=== PATIENT | male | born 1950 | race Two or more races ===

== ENCOUNTER 2023-04-10 19:09 | Emergency (ER) | payer MEDICARE, OTHER ==
[2023-04-10 20:14] LABS: BASOPHILS % (AUTO) 0.4 %; EOSINOPHILS # (AUTO) 0.2 10^3/uL (0.0-0.7); EOSINOPHILS % (AUTO) 2.2 %; HCT - HEMATOCRIT 43.9 % (42.0-52.0); HGB - HEMOGLOBIN 14.3 g/dL (14.0-18.0); LYMPHOCYTES # (AUTO) 1.3 10^3/uL (1.5-3.5); LYMPHOCYTES % (AUTO) 17.9 %; MEAN CORPUSCULAR HGB CONC 32.6 g/dL (32.0-36.0); MEAN PLATELET VOLUME 10.8 fL (7.4-11.4); MONOCYTES # (AUTO) 0.5 10^3/uL (0.0-1.0); MONOCYTES % (AUTO) 7.1 %; NEUTROPHILS # (AUTO) 5.4 10^3/uL (1.5-6.6); NEUTROPHILS % (AUTO) 72.3 %; PLT - PLATELET COUNT 365 10^3/uL (130-450); RED BLOOD COUNT 4.62 10^6/uL (4.70-6.10); RED CELL DISTRIBUTION WIDTH 13.1 % (12.0-15.0); WHITE BLOOD COUNT 7.4 x10^3/uL (4.8-10.8)
--- NOTE | 2023-04-10 20:24 | ED Physician Documentation ---
History of Present Illness - Stated complaint Stated Complaint: SOA - Chief complaint Chief Complaint: Resp - History obtained from History obtained from: Patient, Family - History of Present Illness Timing: Today Pain level max: 0 Pain level now: 0 - Additonal information Additional information: 72-year-old male presents to the emergency department stating that he was recently hospitalized at [facility] in [place] for pneumonia. He was found to have severe pulmonary hypertension at that time as well. He was treated with 10 days of antibiotics, states no fevers and the cough is decreased but he is still having trouble lying flat, feels like he cannot catch his breath when he lies flat. Also complains of swelling to the bilateral ankles. He states that his pulmonary artery pressures were above 90. He is not having any chest pain. He states that he feels anxious today. No abdominal pain. No nausea. No vomiting. He does not yet have a primary care provider. Review of Systems Constitutional: denies: Fever, Chills GI: denies: Vomiting, Diarrhea Skin: denies: Rash Musculoskeletal: denies: Neck pain, Back pain Neurologic: denies: Headache PD PAST MEDICAL HISTORY - Past Medical History Past Medical History: Yes Cardiovascular: Hypertension, Other (Pulmonary artery hypertension) - Present Medications Home Medications: Ambulatory Orders Medication Instructions Recorded Confirmed Aspirin [Iglesia] 325 mg PO DAILY 04/10/23 04/10/23 Furosemide [Lasix] 20 mg PO DAILY #7 tablet 04/10/23 - Allergies Allergies/Adverse Reactions: Allergies Allergy/AdvReac Type Severity Reaction Status Date / Time Sulfa (Sulfonamide Allergy Unknown Verified 04/10/23 19:33 Antibiotics) - Living Situation Living Arrangement: reports: At home - Social History Does the pt smoke?: No Does the pt have substance abuse?: Yes Substance Use and Type: Marijuana - Family History Family history: reports: Non contributory PD ED PE NORMAL - Vitals Vital signs reviewed: Yes - General General: Alert and oriented X 3, No acute distress - HEENT HEENT: PERRL, Moist mucous membranes - Neck Neck: Supple, no meningeal sign - Cardiac Cardiac: RRR, Strong equal pulses, Other (3 out of 6 murmur) - Respiratory Respiratory: No respiratory distress, Clear bilaterally - Abdomen Abdomen: Soft, Non tender, Non distended - Back Back: No spinal TTP - Derm Derm: Warm and dry - Extremities Extremities: No edema, No calf tenderness / cord - Neuro Neuro: Alert and oriented X 3 - Psych Psych: Normal mood, Normal affect Results - Vitals Vitals: Vital Signs - 24 hr 04/10/23 04/10/23 04/10/23 19:24 19:43 21:27 Temperature 36 C L Heart Rate 94 85 88 Respiratory 20 16 22 Rate Blood Pressure 176/104 H 161/101 H 161/96 H O2 Saturation 98 96 96 Oxygen O2 Source Room air - EKG (time done) 2017 EKG releavant findings:: EKG personally interpreted by author of this note. Relevant findings are: Rate: Rate (enter#) (83) Rhythm: NSR Casa: Anterior hemiblock (LAFB) Intervals: Normal KS QRS: Normal Ischemia: Non specific changes - Labs Labs: Laboratory Tests 04/10/23 04/10/23 04/10/23 19:59 20:10 20:10 WBC 7.4 RBC 4.62 L Hgb 14.3 Hct 43.9 MCV 95.0 H MCH 31.0 MCHC 32.6 RDW 13.1 Plt Count 365 MPV 10.8 Neut # (Auto) 5.4 Lymph # (Auto) 1.3 L [place] # (Auto) 0.5 Eos # (Auto) 0.2 Baso # (Auto) 0.0 Absolute Nucleated RBC 0.00 Nucleated RBC % 0.0 Sodium 140 Potassium 4.4 Chloride 104 Carbon Dioxide 25 Anion Gap 11.0 BUN 15 Creatinine 0.9 Estimated GFR (MDRD) 83 L Glucose 115 H Calcium 8.5 Total Bilirubin 0.9 AST 32 ALT 37 Alkaline Phosphatase 66 Troponin I High Sens 36.9 H* B-Natriuretic Peptide Total Protein 6.9 Albumin 4.1 Globulin 2.8 Albumin/Globulin Ratio 1.5 Lipase 38 04/10/23 20:10 WBC RBC Hgb Hct MCV MCH MCHC RDW Plt Count MPV Neut # (Auto) Lymph # (Auto) [place] # (Auto) Eos # (Auto) Baso # (Auto) Absolute Nucleated RBC Nucleated RBC % Sodium Potassium Chloride Carbon Dioxide Anion Gap BUN Creatinine Estimated GFR (MDRD) Glucose Calcium Total Bilirubin AST ALT Alkaline Phosphatase Troponin I High Sens B-Natriuretic Peptide 406 H Total Protein Albumin Globulin Albumin/Globulin Ratio Lipase - Rads (name of study) cxr Relevant Findings:: Final report received, See rad report PD Medical Decision Making - ED course Complexity details: reviewed results, re-evaluated patient, considered differential, d/w patient ED course: 73-year-old male presents to the emergency department with shortness of breath, mostly with lying flat. Feels better when sitting up. His pneumonia seems to have cleared. Does not have any fevers, cough or congestion. His BNP is elevated at over 400. He does have some peripheral edema as well. Has small bilateral pleural effusions. We will trial him on a small amount of Lasix. I did attempt to get records from his recent hospital stay at [facility], they re fused to release any records until medical record is available tomorrow. Recommend that the patient follow-up with a primary care provider and try to find his discharge summary and echocardiogram when he returns home. He has not hypoxic. No respiratory distress here. Lungs clear to auscultation bilaterally. No indication for continued antibiotic therapy. Patient will follow-up with a local PCP and a crts. Patient counseled regarding signs and symptoms for which I believe and urgent re-evaluation would be necessary. Patient with good understanding of and agreement to plan and is comfortable going home at this time This document was made in part using voice recognition software. While efforts are made to proofread this document, sound alike and grammatical errors may occur. IMPRESSION: Significant improvement in previously seen right upper lobe consolidation. Small residual bilateral pleural effusions and basilar atelectasis or consolidations. Stable mild cardiomegaly. Departure - Departure Disposition: 01 Home, Self Care Clinical Impression: Pleural effusion, Pulmonary hypertension Congestive heart failure Qualifiers: Heart failure type: unspecified Heart failure chronicity: acute on chronic Qualified Code(s): I50.9 - Heart failure, unspecified Condition: Good Instructions: Hypertension Pulmonary, ED CHF General, ED CHF Left Side, ED CHF Right Side Follow-Up: [facility] [Provider Group] [facility] [place] [Provider Group] [facility] [Provider Group] [facility] [Provider Group] Prescriptions: Furosemide [Lasix] 20 mg PO DAILY #7 tablet Comments: Your prescription was sent to [facility] in [place]. Please follow-up with a primary care provider for further care. I have listed the clinics [place], [facility] also has a clinic [place] and called [facility] [place]. The [facility] has a cardiology group that does come to the [facility] at the hospital and sees patients [place] the [place]. It is important that you print out your echocardiogram from your stay at [facility] as this will provide more information for the crts and a primary care provider. If you are able to find a document listed as a discharge summary, that will be helpful as well. Your pneumonia appears resolved on your chest x- ray. The pleural effusions should improve with the Lasix. Please return if you worsen. Discharge Date/Time: 04/10/23 21:27
[2023-04-10 20:37] LABS: ALBUMIN 4.1 g/dL (3.2-5.5); ALBUMIN/GLOBULIN RATIO 1.5 (1.0-2.2); BILIRUBIN,TOTAL 0.9 mg/dL (0.2-1.0); CALCIUM 8.5 mg/dL (8.5-10.3); CREATININE 0.9 mg/dL (0.6-1.2); POTASSIUM 4.4 mmol/L (3.5-5.0); TOTAL PROTEIN 6.9 g/dL (6.7-8.2)
--- NOTE | 2023-04-10 20:57 | XRAY Report ---
PROCEDURE: Chest 2 View X-Ray INDICATIONS: cough, recent pneumonia TECHNIQUE: 2 views of the chest were acquired. COMPARISON: CTPA and chest radiograph 03/29/2023 . FINDINGS: Surgical changes and devices: None. Lungs and pleura: Small bilateral pleural effusions with mild atelectasis or consolidations at the l tawny bases. Previously seen right upper lobe opacity has significantly decreased with trace residual o pacity. Mediastinum: Mediastinal contours appear normal. Heart size is enlarged and stable. Bones and chest wall: No suspicious bony lesions. Overlying soft tissues appear unremarkable. IMPRESSION: Significant improvement in previously seen right upper lobe consolidation. Small residual bilateral p leural effusions and basilar atelectasis or consolidations. Stable mild cardiomegaly. Reviewed by: Tony Flores MD on 04/10/2023 8:56 PM PDT Approved by: Tony Flores MD on 04/10/2023 8:56 PM PDT Station ID: [id number]
[2023-04-10] MEDS ORDERED: FUROSEMIDE 20 MG TABLET PO STA (21:04)
[2023-04-10 21:28] VITALS: BP 161/96
--- NOTE | 2023-04-11 12:30 | ED Physician Documentation ---
ED Addendum - Addendum Addendum: 04/11/23 12:29 The patient called and asked that his prescription be sent to [facility] rather than [facility]. I it was for furosemide and noncontrolled substance and so I did that.
== END 2023-04-10 21:27 | disposition home or self-care (01) ==
LOC: ED 19:09
DX: I50.9 Heart failure, unspecified (principal); J90 Pleural effusion, not elsewhere classified; I27.20 Pulmonary hypertension, unspecified
CPT/HCPCS: 36415; 71046; 80053; 83690; 83880; 84484; 85025; 93005; 99284; A9270

== ENCOUNTER 2023-04-21 15:34 | Outpatient (CLI) | payer MEDICARE ==
[2023-04-21] MEDS ORDERED: iohexoL-300 100 ML VIAL ONE (16:26)
[2023-04-21] MEDS ORDERED: iohexoL-300 100 ML VIAL IVP ONE (18:07)
--- NOTE | 2023-04-21 18:44 | CT Report ---
PROCEDURE: CT neck with contrast INDICATIONS: MASS OF NECK CONTRAST: 100mL Omni 300 TECHNIQUE: After the administration of intravenous contrast, 3.0 mm axial sections acquired from the sella to th e aortic arch. 3 mm thick coronal reformats were generated. For radiation dose reduction, the foll owing was used: automated exposure control, adjustment of mA and/or kV according to patient size. COMPARISON: None. FINDINGS: Image quality: Excellent. Lymph nodes: No enlarged lymph nodes seen throughout the neck. Vessels: Visualized vasculature appears patent. Neck spaces: The oropharynx, nasopharynx, and pharynx demonstrate no mucosal lesions. The vocal cor ds, false vocal cords, pyriform sinuses, epiglottis, vallecula, and tongue base all appear normal. E xtramucosal spaces appear unremarkable. Glands: The parotid and submandibular glands appear normal. The thyroid is normal in size and there are no incidental findings. Miscellaneous: Visualized brain and orbits appear normal. Biapical moderate pleural effusions. In th e left anterolateral neck, there is a well-defined encapsulated fat-containing lesion deep to the molina tysmas muscle, and between the sternocleidomastoid and mandible Bones: No suspicious bony lesions. Visualized sinuses and mastoids appear unremarkable. Degenerati ve disc disease and arthropathy present in the cervical spine IMPRESSION: Left anterolateral soft tissue lipoma, deep to the platysmas Reviewed by: Nate Browne MD on 04/21/2023 5:43 PM AKAMBERLY Approved by: Nate Browne MD on 04/21/2023 5:43 PM AKDT Station ID: [id number]
== END 2023-04-21 15:35 | disposition home or self-care (01) ==
LOC: DI 15:34
PROVIDERS: ATTEND Nurse Practitioner Acute Care
DX: D17.0 Benign lipomatous neoplasm of skin and subcutaneous tissue of head, face and neck (principal)
CPT/HCPCS: 70491; Q9967

== ENCOUNTER 2023-04-24 07:28 | Outpatient (CLI) | payer MEDICARE ==
[2023-04-24 14:59] LABS: THYROID STIMULATING HORMONE 6.29 uIU/mL (0.34-5.60)
[2023-04-24 15:04] LABS: BUN - BLOOD UREA NITROGEN 23 mg/dL (6-20); CALCIUM 8.9 mg/dL (8.5-10.3); CARBON DIOXIDE - CO2 28 mmol/L (21-32); CHLORIDE 108 mmol/L (101-111); CHOL/HDL RATIO 3.5 (<5.0); CHOLESTEROL 195 mg/dL; CREATININE 0.9 mg/dL (0.6-1.2); GFR - MDRD 82 (>89); GLUCOSE 96 mg/dL (70-100); HDL CHOLESTEROL 55 mg/dL; LDL CHOLESTEROL,CALCULATED 124 mg/dL; LDL/HDL RATIO 2.3 (<3.6); SODIUM 142 mmol/L (135-145); TRIGLYCERIDES 79 mg/dL; VLDL CHOLESTEROL 16 mg/dL
[2023-04-24 15:32] LABS: FREE T4 (FREE THYROXINE) 0.88 ng/dL (0.58-1.64)
== END 2023-04-24 07:29 | disposition home or self-care (01) ==
LOC: LAB.S 07:28
PROVIDERS: ATTEND Nurse Practitioner Acute Care
DX: R22.1 Localized swelling, mass and lump, neck (principal); I50.9 Heart failure, unspecified; Z13.228 Encounter for screening for other metabolic disorders; Z13.220 Encounter for screening for lipoid disorders
CPT/HCPCS: 36415; 80048; 80061; 83721; 83880; 84439; 84443

== ENCOUNTER 2023-05-22 10:54 | Outpatient (CLI) | payer MEDICARE | END 2023-05-22 10:55 | disposition home or self-care (01) | LOC: LAB.S 10:54 | PROVIDERS: ATTEND Nurse Practitioner Acute Care | DX: Z79.899 Other long term (current) drug therapy (principal) | CPT/HCPCS: 36415; 84132 ==

== ENCOUNTER 2023-11-13 10:05 | Outpatient (CLI) | payer MEDICARE ==
[2023-11-13 15:32] LABS: CALCIUM 9.4 mg/dL (8.5-10.3); CREATININE 0.9 mg/dL (0.6-1.3); POTASSIUM 4.1 mmol/L (3.5-4.5)
== END 2023-11-13 10:06 | disposition home or self-care (01) ==
LOC: LAB.S 10:05
PROVIDERS: ATTEND Nurse Practitioner Acute Care
DX: Z51.81 Encounter for therapeutic drug level monitoring (principal); Z79.899 Other long term (current) drug therapy; I50.9 Heart failure, unspecified
CPT/HCPCS: 36415; 80048; 83880

== ENCOUNTER 2024-01-05 12:00 | Outpatient (CLI) | payer MEDICARE ==
[2024-01-05 14:46] LABS: CALCIUM 9.7 mg/dL (8.5-10.3); CREATININE 0.8 mg/dL (0.6-1.3); POTASSIUM 3.9 mmol/L (3.5-4.5)
== END 2024-01-05 12:01 | disposition home or self-care (01) ==
LOC: LAB.S 12:00
PROVIDERS: ATTEND Internal Medicine
DX: I34.0 Nonrheumatic mitral (valve) insufficiency (principal); R06.02 Shortness of breath
CPT/HCPCS: 36415; 80048

== ENCOUNTER 2024-02-10 11:09 | Outpatient (CLI) | payer MEDICARE ==
[2024-02-10 16:06] LABS: CALCIUM 9.6 mg/dL (8.5-10.3); CREATININE 0.8 mg/dL (0.6-1.3); POTASSIUM 4.1 mmol/L (3.5-4.5)
== END 2024-02-10 11:10 | disposition home or self-care (01) ==
LOC: LAB.S 11:09
PROVIDERS: ATTEND Nurse Practitioner Acute Care
DX: Z51.81 Encounter for therapeutic drug level monitoring (principal); Z79.899 Other long term (current) drug therapy
CPT/HCPCS: 36415; 80048

== ENCOUNTER 2024-05-02 11:11 | Outpatient (CLI) | payer MEDICARE ==
[2024-05-02 15:21] LABS: ALBUMIN 4.2 g/dL (3.2-5.5); ALBUMIN/GLOBULIN RATIO 1.4 (1.0-2.2); BASOPHILS # (AUTO) 0.1 10^3/uL (0.0-0.1); BASOPHILS % (AUTO) 0.8 %; BILIRUBIN,TOTAL 1.1 mg/dL (0.2-1.0); CALCIUM 9.5 mg/dL (8.5-10.3); CREATININE 0.8 mg/dL (0.6-1.3); EOSINOPHILS # (AUTO) 0.3 10^3/uL (0.0-0.7); EOSINOPHILS % (AUTO) 4.8 %; HCT - HEMATOCRIT 40.6 % (42.0-52.0); HGB - HEMOGLOBIN 12.9 g/dL (14.0-18.0); LYMPHOCYTES % (AUTO) 15.4 %; MEAN CORPUSCULAR HEMOGLOBIN 30.4 pg (27.0-31.0); MEAN CORPUSCULAR HGB CONC 31.8 g/dL (32.0-36.0); MEAN CORPUSCULAR VOLUME 95.8 fL (80.0-94.0); MEAN PLATELET VOLUME 10.8 fL (7.4-11.4); MONOCYTES # (AUTO) 0.5 10^3/uL (0.0-1.0); MONOCYTES % (AUTO) 8.3 %; NEUTROPHILS # (AUTO) 4.5 10^3/uL (1.5-6.6); NEUTROPHILS % (AUTO) 70.5 %; PLT - PLATELET COUNT 329 10^3/uL (130-450); RED BLOOD COUNT 4.24 10^6/uL (4.70-6.10); RED CELL DISTRIBUTION WIDTH 14.8 % (12.0-15.0); TOTAL PROTEIN 7.3 g/dL (6.4-8.9); WHITE BLOOD COUNT 6.4 x10^3/uL (4.8-10.8)
== END 2024-05-02 11:12 | disposition home or self-care (01) ==
LOC: LAB.S 11:11
PROVIDERS: ATTEND Nurse Practitioner Acute Care
DX: I10 Essential (primary) hypertension (principal); Z13.228 Encounter for screening for other metabolic disorders; Z13.0 Encounter for screening for diseases of the blood and blood-forming organs and certain disorders involving the immune mechanism
CPT/HCPCS: 36415; 80053; 85025